=== PATIENT | male | born 1940 | race Caucasian/White ===

== ENCOUNTER 2018-10-01 04:18 | Emergency (ER) | payer MEDICARE, BC ==
[2018-10-01 04:52] VITALS: BP 163/104
[2018-10-01] MEDS ORDERED: Ketorolac 30 MG/ML SDV IM ONE (04:53)
--- NOTE | 2018-10-01 04:58 | EDM.PDOC ---
ED HPI GENERAL MEDICAL PROBLEM - General Chief Complaint: General Stated Complaint: PAIN Time Seen by Provider: 10/01/18 04:50 Source of Information: Reports: Patient, Old Records, RN History Limitations: Reports: No Limitations - History of Present Illness INITIAL COMMENTS - FREE TEXT/NARRATIVE: 78 yo male here with several days of L testicular pain. Has been seen for this twice in the clinic and has been prescribed Tramadol and Bactrim so far with only slight relief. He had a normal UA and an ultrasound in the clinic. There has not been a fever. Not able to sleep tonight. Stopped his ibuprofen when he was given the Tramadol. Pain waxes and wanes, but does not completely go away. Onset: Gradual Duration: Day(s): Location: Reports: Pelvis Quality: Reports: Pressure Severity: Moderate Improves with: Reports: Medication Worsens with: Reports: Other (unknown) Context: Reports: Other (See HPI) Associated Symptoms: Reports: No Other Symptoms. Denies: Fever/Chills, Nausea/ Vomiting Treatments SPECTRAL SCIENTIST: Reports: Other Medication(s) (Tramadol) Left Scrotum Pain Score (Numeric/FACES): 8 - Related Data Allergies Allergy/AdvReac Type Severity Reaction Status Date / Time No Known Allergies Allergy Verified 11/29/15 08:29 Home Meds: Home Meds Aspirin [Children's Aspirin] 81 mg PO DAILY 11/29/15 [History] Calcium Carbonate [Calcium] 600 mg PO DAILY 11/29/15 [History] Finasteride 5 mg PO DAILY 11/29/15 [History] Ibuprofen 400 mg PO ASDIRECTED PRN 11/29/15 [History] Iron 65 mg PO DAILY 11/29/15 [History] Levothyroxine 112 mcg PO ACBREAKFAST 11/29/15 [History] Magnesium 250 mg PO DAILY 11/29/15 [History] Vit D3 & K/Berberine HCl/Hops [Ostera] 1 tab PO DAILY 11/29/15 [History] Ciprofloxacin HCl [Cipro] 500 mg PO DAILY 10/01/18 [History] Hydrochlorothiazide/Lisinopril [Lisinopril/HCTZ 10-12.5 MG] 1 tab PO BID [History] Tamsulosin [Tamsulosin 24 Hr] 0.4 mg PO QPM #30 cap.er 10/01/18 [Rx] traMADol HCl [Tramadol HCl] 1 tab PO Q6H 10/01/18 [History] Past Medical History HEENT History: Reports: Hard of Hearing, Impaired Vision Other HEENT History: reading glasses Cardiovascular History: Reports: Hypertension Gastrointestinal History: Reports: GERD Endocrine/Metabolic History: Reports: Hypothyroidism Hematologic History: Reports: Anemia, Blood Transfusion(s) - Infectious Disease History Infectious Disease History: Reports: Chicken Pox, Measles, Mumps - Past Surgical History GI Surgical History: Reports: Colonoscopy, EGD, Other (See Below) Other GI Surgeries/Procedures: ulcer resection Social & Family History - Family History Family Medical History: Noncontributory - Tobacco Use Smoking Status *Q: Former Smoker Years of Tobacco use: 15 Used Tobacco, but Quit: Yes Month/Year Tobacco Last Used: 1966 - Caffeine Use Caffeine Use: Reports: Coffee Caffeine Use Comment: daily coffee use, 1/2 can of diet coke one or twice a week. - Recreational Drug Use Recreational Drug Use: No ED ROS GENERAL - Review of Systems Review Of Systems: See Below Constitutional: Reports: No Symptoms HEENT: Reports: No Symptoms Respiratory: Reports: No Symptoms Cardiovascular: Reports: No Symptoms GI/Abdominal: Reports: No Symptoms : Reports: Other (back pain intermittently, L testicle pain). Denies: Hematuria, Urinary Retention Musculoskeletal: Reports: No Symptoms Skin: Reports: No Symptoms Neurological: Reports: No Symptoms ED EXAM, GENERAL - Physical Exam Exam: See Below Exam Limited By: No Limitations General Appearance: Alert, WD/WN, No Apparent Distress Eye Exam: Bilateral Eye: Normal Inspection Ears: Normal External Exam, Normal Canal, Hearing Loss Ear Exam: Bilateral Ear: Auricle Normal, Canal Normal Nose: Normal Inspection, No Blood Throat/Mouth: Normal Lips, Normal Voice, No Airway Compromise Head: Atraumatic, Normocephalic Neck: Normal Inspection GI/Abdominal: Soft, Non-Tender Back Exam: Normal Inspection. No: CVA Tenderness (R), CVA Tenderness (L) Extremities: Normal Inspection Neurological: Alert, Oriented, CN II-XII Intact, Normal Cognition, No Motor/ Sensory Deficits Psychiatric: Normal Affect, Normal Mood Skin Exam: Warm, Dry, Intact, Normal Color, No Rash Course - Vital Signs Text/Narrative:: bladder scan>1000 ml butler cath placed, >2000 ml drained Last Recorded V/S: Last Vital Signs Temp 36.3 C 10/01/18 04:48 Pulse 73 10/01/18 04:48 Resp 16 10/01/18 04:48 BP 163/104 H 10/01/18 04:48 Pulse Ox 97 10/01/18 04:48 - Orders/Labs/Meds Orders: Active Orders 24 hr Category Date Time Status Bladder Scan [RC] ASDIRECTED Care 10/01/18 06:29 Active Butler Catheter Insertion [Insert Urinary Catheter] [OM. Care 10/01/18 06:30 Ordered PC] Q24H Urinary Catheter Assessment [RC] ASDIRECTED Care 10/01/18 06:31 Active Labs: Laboratory Tests 10/01/18 Range/Units 04:55 Urine Color Yellow (YELLOW) Urine Appearance Clear (CLEAR) Urine pH 7.0 (5.0-8.0) Ur Specific [place] 1.020 (1.008-1.030) Urine Protein Negative (NEGATIVE) mg/dL Urine Glucose (UA) Normal (NEGATIVE) mg/dL Urine Ketones Negative (NEGATIVE) mg/dL Urine Occult Blood Negative (NEGATIVE) Urine Nitrite Positive H (NEGATIVE) Urine Bilirubin Negative (NEGATIVE) Urine Urobilinogen Normal (0.2-1.0) EU/dL Ur Leukocyte Esterase Trace H (NEGATIVE) Urine RBC Not seen (0-5) Urine WBC 0-5 (0-5) Ur Epithelial Cells Not seen Amorphous Sediment Not seen Urine Bacteria Few Urine Mucus Not seen Meds: Medications Discontinued Medications Generic Name Dose Route Start Last Admin Trade Name Freq PRN Reason Stop Dose Admin Ketorolac Tromethamine 30 mg 10/01/18 04:53 10/01/18 05:04 Toradol IM 10/01/18 04:54 30 mg ONETIME ONE Administration Lidocaine HCl 10 ml 10/01/18 06:33 10/01/18 06:40 Xylocaine 2% Jelly MUCMEM 10/01/18 06:34 10 ml ONETIME ONE Administration - Radiology Interpretation Free Text/Narrative:: CT abd/pelvis without contrast-distended bladder seen with some R sided hydronephrosis CT Results Date: 10/01/18 Departure - Departure Time of Disposition: 07:05 Disposition: Home, Self-Care 01 Condition: Good Clinical Impression: Urinary retention - Discharge Information *PRESCRIPTION DRUG MONITORING PROGRAM REVIEWED*: No *COPY OF PRESCRIPTION DRUG MONITORING REPORT IN PATIENT SULEMA: No Prescriptions: Tamsulosin [Tamsulosin 24 Hr] 0.4 mg PO QPM #30 cap.er Instructions: Acute Urinary Retention, Male, [id number] Referrals: PCP,None [Primary Care Provider] - Forms: ED Department Discharge Additional Instructions: Take Flomax every day at bedtime. See your provider Sunday morning to discuss catheter removal, call for an appt. - My Orders Last 24 Hours: My Active Orders 10/01/18 06:29 Bladder Scan [RC] ASDIRECTED 10/01/18 06:30 Butler Catheter Insertion [Insert Urinary Catheter] [OM.PC] Q24H 10/01/18 06:31 Urinary Catheter Assessment [RC] ASDIRECTED - Assessment/Plan Last 24 Hours: My Active Orders 10/01/18 06:29 Bladder Scan [RC] ASDIRECTED 10/01/18 06:30 Butler Catheter Insertion [Insert Urinary Catheter] [OM.PC] Q24H 10/01/18 06:31 Urinary Catheter Assessment [RC] ASDIRECTED
--- NOTE | 2018-10-01 06:15 | CRLCT ---
INDICATION: Left testicular pain. TECHNIQUE: Noncontrast CT scan of the abdomen and pelvis. FINDINGS: The lung bases are unremarkable. No focal abnormalities identified in the visualized portions of the liver, spleen, pancreas, adrenal glands, and kidneys. Mild right-sided hydronephrosis. No uroliths identified. Significantly distended urinary bladder. Mildly prominent prostate gland. The GI tract is incompletely distended but shows no gross abnormalities. The stomach and GE junction are not well assessed. Normal appendix. No retroperitoneal, pelvic sidewall, or mesenteric adenopathy. Atherosclerotic vascular calcifications. Degenerative changes of the spine. IMPRESSION: 1. Significantly distended urinary bladder likely due to a bladder outlet obstruction. 2. Mild right-sided hydronephrosis due to the distended urinary bladder. 3. No uroliths. Dictated by Casper Hines MD @ 10/01/2018 6:14:10 AM Dictated by: Casper Hines MD @ 10/01/2018 06:14:24 (Electronically Signed)
[2018-10-01] MEDS ORDERED: Lidocaine 2% Jelly 10 ML Urojet MUCMEM ONE (06:33)
== END 2018-10-01 07:55 | disposition home or self-care (01) ==
LOC: JP.ED 04:18
DX: R33.9 Retention of urine, unspecified (principal); N13.30 Unspecified hydronephrosis; I10 Essential (primary) hypertension; E03.9 Hypothyroidism, unspecified; Z79.82 Long term (current) use of aspirin; Z79.899 Other long term (current) drug therapy; Z87.891 Personal history of nicotine dependence
CPT/HCPCS: 51702; 51798; 74176; 81001; 96372; 99283; 99284; J1885